=== PATIENT | female | born 1960 | race Caucasian/White ===

== ENCOUNTER 2022-05-20 11:14 | Emergency (ER) | payer OTHER, SELFPAY ==
--- NOTE | ~2022-05-20 | CT_ITS ---
EXAMINATION: CT diagnostic chest wo con DATE: 05/20/2022 12:44 INDICATION: Redness of breath and productive cough TECHNIQUE: Computed tomography (CT) of the chest was performed without intravenous contrast. The dose -length product was 134.19 mGy-cm. Automated exposure control and iterative reconstruction technique were employed. COMPARISON: Chest x-ray dated 08/04/2014. FINDINGS: Heart size normal. Small pericardial effusion. No significant pleural effusion. No thoracic lymphadenopathy. There is emphysema. No endobronchial lesions. No pneumothorax. There are breast imp lants. There are upper lobe nodules measuring 4 mm or less. No focal airspace consolidation. There ar e a few additional smaller nodules in the upper lobes measuring 3 mm or less. IMPRESSION: 1. No acute cardiopulmonary disease. 2: Small bilateral pulmonary nodules measuring 4 mm or less, likely benign. Follow-up low dose [facility] in 12 months recommended. 3: Emphysema. Reviewed, dictated and finalized at location A. IMPRESSION: 1. No acute cardiopulmonary disease. 2: Small bilateral pulmonary nodules measuring 4 mm or less, likely benign. Fol low-up low dose CT chest in 12 months recommended. 3: Emphysema.
[2022-05-20 11:25] VITALS: BP 133/85; PULSE 81; RESP 20; TEMP 36.7; O2SAT 96
[2022-05-20] MEDS: ACETAMINOPHEN 325 MG TABLET 650 MG PO (11:53)
--- NOTE | 2022-05-20 11:54 | ECG_ITS ---
Measurements Intervals [place] Rate: 77 P: 60 AR: 133 QRS: 89 QRSD: 94 T: 80 QT: 367 QTc: 416 Interpretive Statements SINUS RHYTHM INCOMPLETE RIGHT BUNDLE BRANCH BLOCK BASELINE ARTIFACT- I, II, III, AVR, AVL, AVF, V2, V6 BORDERLINE ECG Electronically Signed On 05-20-2022 16:28:10 CDT by Ozzy Mallory D.O.
[2022-05-20 12:04] LABS: Basophils Absolute Auto 0.03 K/mm3 (0.00-0.10); Basophils Percent Auto 0.3 % (0.0-1.0); Eosinophils Absolute Auto 0.04 K/mm3 (0.02-0.50); Eosinophils Percent Auto 0.4 % (1.0-6.0); Hematocrit 45.7 % (35.0-49.0); Hemoglobin 15.2 g/dL (12.0-15.0); Immature Granulocyte Absolute 0.03 K/mm3 (0.00-0.00); Immature Granulocyte Percent A 0.3 % (0.0-0.0); Lymphocytes Absolute Auto 1.37 K/mm3 (1.10-4.50); Lymphocytes Percent Auto 14.3 % (18.0-42.0); Mean Corpuscular HGB Conc 33.3 g/dL (32.0-36.0); Mean Corpuscular Volume 96.2 fL (78.0-102.0); Mean Platelet Volume 10.4 fl (9.2-11.8); Monocytes Percent Auto 6.3 % (2.0-11.0); Neutrophils Absolute Auto 7.5 K/mm3 (1.7-7.2); Neutrophils Percent Auto 78.4 % (50.0-70.0); Platelet Count Result 194 K/mm3 (150-420); Red Blood Count 4.75 M/mm3 (4.20-5.40); Red Cell Distribution Width 11.9 % (11.6-14.4); White Blood Count 9.6 K/mm3 (4.8-10.8)
[2022-05-20 12:15] LABS: Add Urine Microscopic? YES; Appearance Urine Clear (Clear); Bilirubin Urine Negative (Negative); Blood Urine Negative (Negative); Color Urine Yellow (Yellow); Glucose Urine UA Negative (Negative); Ketones Urine Trace (Negative); Leukocyte Esterase Ur Negative (Negative); Nitrate Urine Negative (Negative); Protein Urine Trace (Negative); Urobilinogen Urine 0.2 mg/dL (0.2-1.0); pH Urine 6.5 (5.0-8.0)
[2022-05-20] MEDS: methylPREDNISolone SOD SUCC 125 MG VIAL IM (12:17)
[2022-05-20 12:18] LABS: Bacteria Urine Trace /hpf; RBC Urine 0-2 /hpf (0-2); Squamous Epithelial Cell Urine Few /hpf (Few); WBC Urine 0-3 /hpf (0-3)
[2022-05-20 12:20] VITALS: BP 139/84; PULSE 76; RESP 18; TEMP 36.6; O2SAT 95
[2022-05-20] MEDS: ALBUTEROL SULFATE (*SP) INHALER 2 PUFF INHALATION (12:24)
[2022-05-20] MEDS: UMECLIDINIUM BROMIDE 62.5 MCG ELLIPTA 1 PUFF INHALATION (12:25)
[2022-05-20 12:26] VITALS: PULSE 70; RESP 18; O2SAT 95
[2022-05-20 12:28] VITALS: PULSE 70; RESP 18; O2SAT 95
[2022-05-20 12:28] LABS: Lactic Acid Reflex 0.6 mmol/L (0.4-2.0)
[2022-05-20 12:29] LABS: Alanine Aminotransferase 26 U/L (14-59); Albumin Level 3.8 g/dL (3.4-5.0); Alkaline Phosphatase 140 U/L (46-116); Anion Gap 7 mmol/L (8-16); Aspartate Amino Transferase 11 U/L (15-37); Bilirubin,Total 0.5 mg/dL (0.00-1.00); Blood Urea Nitrogen 16 mg/dL (7-18); Calcium 8.9 mg/dL (8.5-10.1); Carbon Dioxide 28 mmol/L (21-32); Chloride 104 mmol/L (98-108); Estimated CRCL calculation 60 ml/min; Estimated Glomerular Filt Rate > 60; Glucose 99 mg/dL (70-99); Osmolality Calculated 289 mOsm/kg (285-295); Potassium 4.1 mmol/L (3.5-5.1); Sodium 139 mmol/L (136-145); Total Protein 7.1 g/dL (6.4-8.2)
[2022-05-20 12:32] LABS: Influenza A QL RT-PCR Negative (Negative); Influenza B QL RT-PCR Negative (Negative); SARS-CoV-2 RNA PCR Positive (Negative)
[2022-05-20 12:32] LABS: Troponin I 4.2 ng/L (0.00-60.4)
[2022-05-20 13:20] VITALS: BP 129/79; PULSE 74; RESP 18; TEMP 36.7; O2SAT 98
--- NOTE | 2022-05-20 13:30 | ED.URI ---
HPI - URI/Sore Throat General Chief Complaint: Upper Respiratory Infection Stated Complaint: cough, dyspnea, fever, chills Time Seen by Provider: 05/20/22 11:18 Source: patient and RN notes reviewed Mode of arrival: ambulatory Limitations: no limitations History of Present Illness MD elicited complaint: cough and nasal congestion Onset (ago): day(s) (2) Consistency: constant Severity: mild Pain scale (0-10): 0 Description of mucous: green Able to tolerate fluids by mouth: Yes Exacerbating factors: nothing Relieving factors: OTC cold medicine Associated symptoms: chills, nasal congestion and cough Treatments prior to arrival: cold medicine Related Data Allergies Allergy/AdvReac Type Severity Reaction Status Date / Time No Known Allergies Allergy Verified 05/20/22 11:34 Review of Systems Review of Systems: All systems reviewed & are unremarkable except as noted in HPI and below Constitutional: Constitutional: Reports no additional constitutional complaints Eyes: Eyes: Reports no additional eye complaints ENT: Reports system reviewed and no additional complaints, except as documented Cardiovascular: Cardiovascular: Reports no additional cardiovascular complaints Respiratory: Respiratory: Reports cough Gastrointestinal: Gastrointestinal: Reports no additional gastrointestinal complaints Genitourinary: Genitourinary: Reports no additional female genitourinary complaints Musculoskeletal: Musculoskeletal: Reports no additional musculoskeletal complaints Integumentary/Breasts: Skin/Breast: Reports system reviewed and no additional complaints, except as docu Neurologic: Reports system reviewed and no additional complaints, except as documented Psychiatric: Psychiatric: Reports no additional psychiatric complaints Endocrine: Endocrine: Reports no additional endocrine complaints Hematologic/Lymphatic: Hematologic/Lymphatic: Reports no additional hematologic/lymphatic complaints Allergic/Immunologic: Allergic/Immunologic: Reports no additional allergic/immunologic complaints PMFSH Past Medical History Medical History Bronchitis COVID-19 Exam Const: General: healthy appearing and no acute distress Nutritional Appearance: well nourished Orientation/consciousness: patient oriented x3 Limitations: no limitations HENMT: Head: normal to inspection Ears: external ears normal, TM's normal bilaterally and EAC's normal General nose exam: Normal external nose present and Normal nares present Face and sinus: normal facial exam and sinuses nontender Mouth: Yes Normal oral and palatal mucosa present and Yes moist mucous membranes Teeth and gingiva: dentition normal Throat: posterior oropharynx normal Eyes: Conjunctivae: conjunctivae normal Pupils: Equal, round and reactive pupils present EOM: EOMs intact bilaterally Neck: Neck: normal visual inspection, no lymphadenopathy and no meningeal signs Chest: Chest palpation & inspection: normal inspection of the chest Resp: Effort & Inspection: normal respiratory effort Auscultation: rhonchi Cardio: Rate: regular rate Rhythm: regular rhythm GI: GI Palp: Yes Soft to palpation and No Tenderness to palpation present (GI) Auscultation: normal bowel sounds : General: Yes bladder normal to palpation and Yes no CVA tenderness Bimanual exam- vagina & uterus: bladder normal to palpation Back/Spine/Pelvis: Back: no CVA tenderness Skin: General skin exam: normal color Rashes: no rashes Wounds: no wounds Neuro: General: patient oriented x3, moves all extremities, no meningeal signs, no focal motor deficits and CN's II-XI intact bilaterally Cranial nerves: Yes Equal, round and reactive pupils present and Yes Nystagmus not present Speech: normal speech Gait exam (Neuro): Normal gait present Extrem: General: normal to inspection and no pedal edema Psych: Mental Status: mental status grossly normal Affect: no
== END 2022-05-20 13:50 | disposition home or self-care (01) ==
PROVIDERS: Emergency Provider Emergency Medicine
DX: U07.1 COVID-19 (principal); J40 Bronchitis, not specified as acute or chronic
CPT/HCPCS: 36415; 71250; 80053; 81001; 83605; 84484; 85025; 87081; 87502; 87880; 93005; 94640; 96372; 99284; A9270; C9803; J2930; U0003; U0005